=== PATIENT | male | born 1995 | race Caucasian/White ===

== ENCOUNTER 2017-09-29 17:19 | Emergency (ER) | payer BC, OTHER ==
[2017-09-29] MEDS ORDERED: SUMAtriptan 6 MG/0.5 ML SDV SUBCUT STA (17:54)
[2017-09-29] MEDS ORDERED: Ondansetron 8 MG Tab.DIS PO ONE (17:54)
--- NOTE | 2017-09-29 17:56 | EDM.PDOC ---
ED HPI GENERAL MEDICAL PROBLEM - General Chief Complaint: Headache Stated Complaint: MIGRAINE Time Seen by Provider: 09/29/17 17:19 Source of Information: Reports: Patient, Family History Limitations: Reports: No Limitations - History of Present Illness INITIAL COMMENTS - FREE TEXT/NARRATIVE: 22 years old w m came with his SO to ed due to Nausea and pain at his post harjinder. Pt satate, his mom and one of his brother's have similar symptoms and were diagnosed with"migraine". No trauma, no dizziness or lightheadedness or any other acute medical issues.BP 135/52 pulse 78 Onset: Unknown/Unsure Onset Date: 09/29/17 Onset Time: 15:00 Duration: Hour(s): Location: Reports: Head Quality: Reports: Ache, Burning Severity: Mild Improves with: Reports: Rest Worsens with: Reports: Movement head Pain Score (Numeric/FACES): 8 - Related Data Allergies Allergy/AdvReac Type Severity Reaction Status Date / Time No Known Allergies Allergy Verified 09/29/17 17:29 Home Meds: Home Meds Mirtazapine [Remeron] 25 mg PO BEDTIME 09/29/17 [History] Sertraline [Zoloft] 100 mg PO BEDTIME 09/29/17 [History] Past Medical History - Past Health History Medical/Surgical History: Denies Medical/Surgical History Gastrointestinal History: Reports: Gastritis Psychiatric History: Reports: Anxiety - Past Surgical History Other Musculoskeletal Surgeries/Procedures:: knee surgery Social & Family History - Family History Family Medical History: Unobtainable - Tobacco Use Smoking Status *Q: Current Every Day Smoker Years of Tobacco use: 4 Packs/Tins Daily: 1 Second Hand Smoke Exposure: No - Caffeine Use Caffeine Use: Reports: Coffee, Soda - Alcohol Use Days Per Week of Alcohol Use: 0 - Recreational Drug Use Recreational Drug Use: No - Living Situation & Occupation Living situation: Reports: Single ED ROS GENERAL - Review of Systems Review Of Systems: See Below Constitutional: Reports: No Symptoms HEENT: Reports: No Symptoms Respiratory: Reports: No Symptoms Cardiovascular: Reports: No Symptoms Endocrine: Reports: No Symptoms GI/Abdominal: Reports: No Symptoms, Nausea : Reports: No Symptoms Musculoskeletal: Reports: No Symptoms Skin: Reports: No Symptoms Neurological: Reports: Headache Psychiatric: Reports: No Symptoms Hematologic/Lymphatic: Reports: No Symptoms Immunologic: Reports: No Symptoms - Physical Exam Exam: See Below Exam Limited By: No Limitations General Appearance: Alert, WD/WN, No Apparent Distress Eye Exam: Bilateral Eye: Normal Inspection Ears: Normal External Exam Nose: Normal Inspection Throat/Mouth: Normal Inspection Head Exam: Atraumatic, Normocephalic Neck: Normal Inspection, Supple, Non-Tender Respiratory/Chest: No Respiratory Distress Cardiovascular: Normal Peripheral Pulses GI/Abdominal: Normal Bowel Sounds, Soft (Male) Exam: Deferred Rectal (Males) Exam: Deferred Neuro Exam (Abbreviated): Alert, Oriented, CN II-XII Intact, Normal Cognition, Normal Gait, No Motor/Sensory Deficits, Other (ant headache) Back Exam: Normal Inspection, Full Range of Motion Extremities: Normal Inspection, Normal Range of Motion Psychiatric: Normal Affect Skin Exam: Warm, Dry, Intact, Normal Color, No Rash Course - Vital Signs Text/Narrative:: 22 years old w gerry came with his SO to ed due to Nausea and pain at his post harjinder. Pt satate, his mom and one of his brother's have similar symptoms and were diagnosed with"migraine". No trauma, no dizziness or lightheadedness or any other acute medical issues.BP 135/52 pulse 78 PE: Post harjinder Headache nausea, otherwise nl PE Impression: Tension Headache vs Migraine H/A Tx: Zofran po Imitex Reexam: H/A and nausea subsided, he was requesting a sick leave Plan: D/C with instructions Last Recorded V/S: Last Vital Signs Temp 36.8 C 09/29/17 18:27 Pulse 67 09/29/17 18:27 Resp 15 09/29/17 18:27 BP 126/75 09/29/17 18:27 Pulse Ox 100 09/29/17 18:27 - Orders/Labs/Meds Meds: Medications Discontinued Medications Generic Name Dose Route Start Last Admin Trade Name Freq PRN Reason Stop Dose Admin Ondansetron HCl 8 mg 09/29/17 17:54 09/29/17 17:59 Zofran Odt PO 09/29/17 17:55 8 mg ONETIME ONE Administration Sumatriptan Succinate 6 mg 09/29/17 17:54 09/29/17 17:59 Imitrex SUBCUT 09/29/17 17:55 6 mg ONETIME STA Administration Departure - Departure Time of Disposition: 18:18 Disposition: Home, Self-Care 01 Condition: Good Clinical Impression: Migraine Qualifiers: Migraine type: without aura Status migrainosus presence: without status migrainosus Intractability: not intractable Qualified Code(s): G43.009 - Migraine without aura, not intractable, without status migrainosus - Discharge Information Instructions: Recurrent Migraine Headache, [id number] Referrals: Best Cooper MD [Primary Care Provider] - Forms: ED Department Discharge, ED Return to Work/School Form Additional Instructions: Please f/u, come back if your symptoms get acutely worse
[2017-09-29 18:27] VITALS: BP 126/75
== END 2017-09-29 18:30 | disposition home or self-care (01) ==
LOC: FB.ED 17:19
DX: G43.009 Migraine without aura, not intractable, without status migrainosus (principal); F17.210 Nicotine dependence, cigarettes, uncomplicated
CPT/HCPCS: 96372; 99283; A9270; J3030

== ENCOUNTER 2021-01-23 13:25 | Emergency (ER) | payer BC, OTHER ==
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
[2021-01-23] MEDS ORDERED: Ondansetron 4 MG Tab.DIS PO ONE (14:30)
[2021-01-23] MEDS ORDERED: Ibuprofen 600 MG Tab PO ONE (14:33)
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
[2021-01-23 15:25] VITALS: BP 121/64; PULSE 82
== END 2021-01-23 15:30 | disposition home or self-care (01) ==
LOC: FB.ED 13:25
DX: S09.90XA Unspecified injury of head, initial encounter (principal); S02.2XXA Fracture of nasal bones, initial encounter for closed fracture; S16.1XXA Strain of muscle, fascia and tendon at neck level, initial encounter; S00.83XA Contusion of other part of head, initial encounter; M25.522 Pain in left elbow; M25.512 Pain in left shoulder; Y04.0XXA Assault by unarmed brawl or fight, initial encounter
CPT/HCPCS: 70450; 70486; 72125; 99284-25; A9270-GY